=== PATIENT | male | born 1950 | race Caucasian/White ===

== ENCOUNTER 2018-03-23 01:06 | Observation (INO) | payer MEDICARE, BC ==
[2018-03-22 15:01] LABS: INR 1.02
[~2018-03-23] VITALS: Ht 177.8 cm; Wt 117.0 kg
[2018-03-23] VITALS (13 sets, daily range): BP systolic 104–133; BP diastolic 60–109
[~2018-03-23 01:06] MED LIST: ASPI-1471 PO; ATOR40TA69 PO; CALC500T6 PO; CHOL10005 PO; CYAN100058 PO; FISH1CAP15 PO; MULT-1335 PO
[2018-03-23] MEDS ORDERED: PREGABALIN 150 MG CAPSULE PO ONE (06:00)
[2018-03-23] MEDS ORDERED: CLINDAMYCIN 900 MG/D5W 50 ML 50 ML IVPB ONE (06:00)
[2018-03-23] MEDS ORDERED: BACITRACIN 50000 UNIT/VIAL 100,000 UNIT in NS 0.9% 3000 ML IRRIGATION BAG 3,000 ML IR ONE (06:00)
[2018-03-23] MEDS ORDERED: NORMOSOL R SOLN(*) 1000 ML BAG 1,000 ML IV PRN (06:00)
[2018-03-23] MEDS ORDERED: LIDOCAINE/SOD BICARB 8.4% SYR ID ONE (06:00)
[2018-03-23] MEDS ORDERED: ACETAMINOPHEN 500 MG TAB PO ONE (06:00)
[2018-03-23] MEDS ORDERED: CELECOXIB 200 MG CAP PO ONE (06:00)
[2018-03-23] MEDS ORDERED: cloNIDine EPIDUR INJ 100MCG/ML 40 MCG, ROPIVACAINE 0.5% 20 ML VIAL 25 ML, EPINEPHrine H... EPI ONE (06:00)
[2018-03-23] MEDS ORDERED: FAMOTIDINE 20 MG TAB PO ONE (06:00)
[2018-03-23] MEDS ORDERED: TRANEXAMIC AC 1000 MG/10ML SDV 1,000 MG in DEXTROSE 5% 50 ML BAG 50 ML IV ONE (06:00)
[2018-03-23] MEDS ORDERED: MIDAZOLAM 2 MG/2 ML VIAL IVP PRN (06:00)
[2018-03-23] MEDS ORDERED: fentaNYL CITR 100 MCG/2 ML AMP ONE (07:06)
[2018-03-23] MEDS ORDERED: KETAMINE HCL-NS 50 MG/5 ML SYR ONE (07:07)
[2018-03-23] MEDS ORDERED: ONDANSETRON 4 MG/2 ML VIAL ONE (07:07)
[2018-03-23] MEDS ORDERED: LIDOCAINE MPF 1% 5 ML VIAL ONE (07:07)
[2018-03-23] MEDS ORDERED: PROPOFOL EMUL(*) 10MG/ML 20 ML 20 ML ONE (07:07)
[2018-03-23] MEDS ORDERED: DEXAMETHASONE SOD PHOS 10MG/ML ONE (07:07)
[2018-03-23] MEDS ORDERED: PHENYLEPHRINE 10 MG/1 ML VIAL ONE (07:55)
[2018-03-23] MEDS ORDERED: GLYCOPYRROLATE 1 MG/5 ML INJ ONE (08:01)
[2018-03-23] MEDS ORDERED: NS 0.9% IRRIGATION 1000ML PLCT IR ONE (09:15)
[2018-03-23] MEDS ORDERED: diphenhydrAMINE 25 MG CAP PO PRN (10:20)
[2018-03-23] MEDS ORDERED: ONDANSETRON 4 MG/2 ML VIAL IVP PRN (10:20)
[2018-03-23] MEDS ORDERED: ZOLPIDEM TARTRATE 5 MG TAB PO PRN (10:20)
[2018-03-23] MEDS ORDERED: HYDROmorphone HCL 2 MG/ML SDV IVP PRN (10:20)
[2018-03-23] MEDS ORDERED: LR 1000 ML BAG 1000 ML IV PRN (10:20)
[2018-03-23] MEDS ORDERED: diphenhydrAMINE 50 MG/ML VIAL IVP PRN (10:20)
[2018-03-23] MEDS ORDERED: FLUSH 10 ML SYR IVP PRN (10:20)
[2018-03-23] MEDS ORDERED: PROMETHAZINE 25 MG/ML 1 ML AMP IVP PRN (10:20)
[2018-03-23] MEDS ORDERED: MAGNESIUM HYDROXIDE* 30ML UDCP PO PRN (10:20)
[2018-03-23] MEDS ORDERED: BISACODYL 10 MG SUPP PR PRN (10:20)
[2018-03-23] MEDS ORDERED: MAGNESIUM CITRATE 300 ML BTL PO PRN (10:20)
--- NOTE | 2018-03-23 10:32 | OPERATIVE REPORT 1 ---
EVENT DATE: March 23, 2018 SURGEON: Ronaldo De MD ANESTHESIOLOGIST: Syd Olmstead MD ANESTHESIA: General plus Spinal. JAVA GROOVY DEVELOPER: DELMER Mccain, ACID BLOWER PREOPERATIVE DIAGNOSIS Right knee osteoarthritis. POSTOPERATIVE DIAGNOSIS Right knee osteoarthritis. PROCEDURE PERFORMED Right total knee arthroplasty. FINDINGS The patient had a significant amount of arthritic changes and tightness to his knee but was amenable for a total knee replacement. ESTIMATED BLOOD LOSS 300 mL. DRAINS None. COMPLICATIONS None. TOURNIQUET TIME 15 minutes, which was only up during instrumentation. IMPLANTS USED DePuy Attune posterior stabilized size 9 femur with a size 9 tibial tray, posterior stabilized rotating platform, 9 x 5 poly insert and 38 anatomic patella. SPECIMENS None. INDICATIONS AND HISTORY This patient is a 67-year-old male who presented to my clinic for evaluation of right knee pain and irritation going on for some time. He continued to have pain and irritation despite conservative management so, therefore, he wanted to go ahead with the total knee arthroplasty in the near future. The risks and benefits were discussed with the patient and inform consent was obtained. We talked about how there is no guarantee it will make him better and he may still have some stiffness and irritation associated with it and he stated he understood this. DESCRIPTION OF PROCEDURE The patient was brought into the operating room. He and the procedure were both verified. He was placed supine on the operating table and induced intubated by anesthesia. The right lower extremity was prepped and draped in the usual fashion and a time-out was observed, verifying the correct patient and procedure. The standard incision was made over the anterior aspect of the knee. I cauterized all bleeders on the way in to get good coagulation. I was then able to go through some of the scar tissue on the medial side and then release some of this in order to get down to the medial parapatellar approach. Once on the medial parapatellar approach, I was then able to go through the medial side and sublux the patella to the lateral side. I was then able to open up a little bit of the MCL on the medial side in order to gain better exposure associated with this. He did have large osteophytes on the patella, which I removed in order to gain better exposure. I then was able to remove the anterior aspect of the menisci and then the ACL off the anterior aspect of the femur. I then was able to drill an intramedullary hole through the central portion of the femur and then was able to put the intramedullary guide down the 9-and-5 cutting block in order to cut the distal femur. Once I cut the distal femur, it sized to a 9 and so, therefore, we put in the 4-and-1 cutting block and the notch cutting block in accordance with the 9 and cut those without any difficulty. We then turned attention to the tibia, where I was able to sublux the tibial forward after removing the rest of the ACL and PCL and then the rest of the posterior aspects to the menisci and the lateral and medial sides. Once I was able to do this, I was then able to drill the intramedullary guide down the central portion of the tibia and then was able to use the intramedullary guide to make the standard cut on the tibia itself. Once I was able to make the standard cut on the tibia, I was then able to size the tibia to a size 9 and then we prepped the tibia in the usual fashion. I then was able to put in the trial components with a 5 mm insert. This had excellent stability associated with it and no signs of problems and got to full extension so, therefore, this is what we decided to use for the their final component. I then prepped the patella without any difficulty by cutting 9.5 mm off the patella using the standard guide and then sizing it to a 38 anatomic patella and drilling the holes in accordance with this. I then exsanguinated the limb and put up the tourniquet. Since everything was tracking well and everything looked good for stability, we then cemented in the final components without any difficulty and put in the polys without any major issue. I then allowed the cement to harden and let down the tourniquet after about 15 minutes and then closed the medial parapatellar approach with a #2 Stratafix. This was then followed by 2-0 Vicryl in the fat layer and 2-0 Stratafix in the subcutaneous layer and subcuticular running Monocryl and then a bio-occlusive dressing put over the top. The patient was then awakened and extubated and transferred to PACU in stable condition, where he will be admitted. MAILE
--- NOTE | 2018-03-23 10:50 | RADIOLOGY IMAGING REPORT ---
[place] [facility] [place] Rubin Suazo : 1950 MR: [id number] V: [id number] EXAM DATE: ORDERING PHYSICIAN: DAVID MAYO TECHNOLOGIST: Location: [facility] - [place] Patient: Rubin Suazo : 1950 Visit/Account:[id number] Date of Sevice: 03/23/2018 Right knee, two views. HISTORY: Postop total knee arthroplasty. COMPARISON: None. The articular surfaces of the distal femur, proximal tibia, and patella have been resected and replac ed with prosthetic components. The components have been secured with cement. Alignment is unremarkabl e. Air is present in the joint and anterior soft tissues. Small calcifications are scattered in the soft tissues. A few vascular calcifications are present posteriorly. Patchy areas of sclerosis are present in the distal femoral diaphysis. IMPRESSION: Unremarkable knee replacement. Distal femoral sclerosis consistent with an enchondroma or old bone infarct. Report Dictated By: Duane Bernal MD at 03/23/2018 10:42 AM Report E-Signed By: Duane Bernal MD at 03/23/2018 10:46 AM WSN:[email or web address]
--- NOTE | 2018-03-23 11:48 | Hospitalist Consultation ---
History of Present Illness Requesting Physician Dr. De Reason for Consult Medical Management Chief Complaint s/p right knee replacement History of Present Illness He was admitted s/p right knee replacement. It is reported the surgery went well and without complication. History Problems: (1) CKD (chronic kidney disease) stage 3, GFR 30-59 ml/min Status: Chronic (2) Hyperlipemia Status: Chronic (3) CAD (coronary artery disease) Status: Chronic Home Meds Reported Medications Multivitamin With Minerals (MULTIPLE VITAMIN) 1 Each Tablet, 1 EACH PO DAILY, TAB 03/16/18 Cyanocobalamin (Vitamin B-12) (Vitamin B-12) 1,000 Mcg Capsule, 1 TAB PO DAILY 03/16/18 Calcium Carbonate (CALCIUM) 500 Mg Tablet, 500 MG PO DAILY 03/16/18 Cholecalciferol (Vitamin D3) (VITAMIN D3) 1,000 Unit Tablet, 1000 UNIT PO DAILY, TAB 03/16/18 Fish Oil/Dha/Epa (FISH OIL 1,200 MG FISH OIL) 1 Each Capsule, 1 EACH PO DAILY, CAPSULE 03/16/18 Aspirin (ASPIR 81) 81 Mg Tablet.dr, 81 MG PO QDAY, TAB 03/16/18 Atorvastatin Calcium (ATORVASTATIN CALCIUM) 40 Mg Tablet, 1 TAB PO QDAY, TAB 03/16/18 Allergies: Coded Allergies: Penicillins (Verified Allergy, Mild, HIVES/RASH, 03/16/18) 60 YEARS AGO Patient History: FH: diabetes mellitus MOTHER FH: hypertension MOTHER FH: pancreatic cancer FATHER Hx Smoking: Yes (QUIT 2002) Smoking Status: Former Smoker Caffeine Intake: Coffee Caffeine/Cups Per Day: 4 Hx Alcohol Use: Yes Alcohol Used: Wine Hx Substance Use Disorder: No History of IV Drug Use: No Review of Systems All Systems Reviewed/Normal: Yes, Except as Noted Exam Vital Signs Vital Signs Date Time Temp Pulse Resp B/P (MAP) Pulse Ox O2 Delivery O2 Flow Rate FiO2 03/23/18 11:26 97.1 66 12 127/82 (97) 96 Nasal Cannula 2.0 General Appearance: Alert, Awake, No Acute Distress, Afebrile Neuro: No Gross deficits Cardiovascular: Regular Rate and Rhythm Respiratory: No Respiratory Distress, Clear to Auscultation GI: Abd Soft and Non-Tender Extremities: Warm, Perfused; No Edema Psych: Alert & Oriented X3, Appropriate Mood & Affect Assessment and Plan Problems: (1) Status post right knee replacement Status: Acute Assessment & Plan: Followed by Dr. De. He will be placed on Aspirin for DVT prophylaxis. He has no history of DVT or PE. (2) Hyperlipemia Status: Chronic Assessment & Plan: He is on chronic treatment with Atorvastatin. (3) CAD (coronary artery disease) Status: Chronic Assessment & Plan: He does take a baby aspirin daily. This will be held while giving adult aspirin for DVT prophylaxis. He may resume after 30 days. (4) CKD (chronic kidney disease) stage 3, GFR 30-59 ml/min Status: Chronic Assessment & Plan: His creatinine was 1.1 prior to surgery. We will check BMP in the morning. Venous Thromboembolism Antithrombotics Is Pt On Any Antithrombotics?: No FRED THOMAS Mar 23, 2018 11:48
[2018-03-23] MEDS ORDERED: CLINDAMYCIN 150 MG CAP PO SCH (16:00)
[2018-03-23] MEDS: CLINDAMYCIN 150 MG CAP PO SCH (19:39)
[2018-03-23] MEDS ORDERED: ASPIRIN 325 MG TAB PO SCH (21:00)
[2018-03-24 03:33] VITALS: BP 115/76
[2018-03-24] MEDS: CLINDAMYCIN 150 MG CAP PO SCH (03:44)
[2018-03-24 07:26] VITALS: BP 125/69
[2018-03-24] MEDS ORDERED: OXYC-865 PO (08:52)
[2018-03-24] MEDS ORDERED: CYANOCOBALAMIN 1000 MCG TAB PO SCH (09:00)
[2018-03-24] MEDS ORDERED: ATORVASTATIN 40 MG TAB PO SCH (09:00)
[2018-03-24] MEDS ORDERED: ASPI-757 PO (09:12)
--- NOTE | 2018-03-24 12:38 | Hospitalist Progress Note ---
Subjective Progress Notes Subjective He has no complaints this morning. He had no acute events overnight. Patient Complains of: Cardiovascular: No: Chest Pain Respiratory: No: Shortness of Breath Physical Exam Vital Signs Date Time Temp Pulse Resp B/P (MAP) Pulse Ox O2 Delivery O2 Flow Rate FiO2 03/24/18 11:34 90 03/24/18 08:13 Room Air 03/24/18 07:26 97.6 77 16 125/69 (87) 03/24/18 03:33 1.0 Intake and Output 03/24/18 01:00 Intake Total 5890 ml Output Total 250 ml Balance 5640 ml Intake Oral 1890 ml IV Total 2000 ml Other 2000 ml Output Estimated Blood Loss 250 ml # Voids 1 General Appearance: Alert, Awake, No Acute Distress, Afebrile Neuro: No Gross deficits Cardiovascular: Regular Rate and Rhythm Respiratory: No Respiratory Distress, Clear to Auscultation GI: Soft and Non-Tender Psych: Alert & Oriented X3, Appropriate Mood & Affect Result Diagram: 03/24/1853003/24/18530 Assessment and Plan Problems: (1) Status post right knee replacement Status: Acute Assessment & Plan: Followed by Dr. De. He will be placed on Aspirin for D VT prophylaxis. He has no history of DVT or PE. (2) Hyperlipemia Status: Chronic Assessment & Plan: He is on chronic treatment with Atorvastatin. (3) CAD (coronary artery disease) Status: Chronic Assessment & Plan: He does take a baby aspirin daily. This will be held while giving adult aspirin for DVT prophylaxis. He may resume after 30 days. (4) CKD (chronic kidney disease) stage 3, GFR 30-59 ml/min Status: Chronic Assessment & Plan: His creatinine was 1.1 prior to surgery. Creatinine 1.0. Exam Sepsis Risk: No Definite Risk FRED THOMAS Mar 24, 2018 12:38
== END 2018-03-24 09:53 | disposition home or self-care (01) ==
LOC: OR 01:06 → MED 11:20
PROVIDERS: ADMIT Orthopaedic Surgery; ATTEND Orthopaedic Surgery
DX: M17.11 Unilateral primary osteoarthritis, right knee (principal); Z79.01 Long term (current) use of anticoagulants; I51.9 Heart disease, unspecified; Z79.82 Long term (current) use of aspirin
CPT/HCPCS: 27447; 36415; 73560; 85014; 85018; 85610; 86850; 86900; 86901; 97110; 97116; 97161; 97530; A9270; C1713; C1776; G0378; J0171; J0735; J1100; J1170; J1885; J2001; J2250; J2370; J2405; J2704; J2795; J3010; J3490; J7050; J7060; 82310; 82374; 82435; 82565; 82947; 84132; 84295; 84520